=== PATIENT | female | born 1945 | race Caucasian/White ===

== ENCOUNTER 2020-10-04 16:31 | Outpatient (REF) | payer MEDICARE, SELFPAY ==
[2020-10-04 19:55] LABS: Anion Gap 4.8 mmol/L (3-11); BUN 18 mg/dL (7-18); CO2 32.2 mmol/L (21.0-32.0); CREATININE 1.07 mg/dL (0.55-1.02); Calcium 9.2 mg/dL (8.5-10.1); Chloride 100 mmol/L (98-107); Estimated GFR 49.72 (mL/min/1.73m2); Glucose 68 mg/dL (74-106); NT-proBNP 677 pg/mL (<300); Potassium 4.1 mmol/L (3.5-5.1); Sodium 137 mmol/L (136-145)
== END 2020-10-04 16:51 ==
LOC: LBN 16:31
PROVIDERS: Visit Provider Internal Medicine
DX: I50.22 Chronic systolic (congestive) heart failure (principal)
CPT/HCPCS: 80048; 83880

== ENCOUNTER 2020-11-17 14:00 | Inpatient (IN) | payer OTHER, SELFPAY ==
[2020-11-17 14:08] LABS: Source Nasopharynx
--- NOTE | 2020-11-17 14:16 | HPE_ITS ---
Date of service: 11/17/20 Assessment and Plan Assessment and plan (1) Hospice care patient: Status: Acute Assessment and plan: On since September 2020 Here on symptom management. May want to change advisor to respite once her symptoms are better controlled. (2) Pulmonary hypertension: Status: Chronic Assessment and plan: chronic reason for hospice linked to her cor pulmonale no obvious edema EF 35% when last checked (3) Pulmonary fibrosis: Status: Chronic Assessment and plan: no known causative exposures, other than tobacco... (4) Chronic respiratory failure with hypoxia: Status: Chronic Assessment and plan: oxygen sat at home, prior to her coming in to hospital, was 85% on 4L she says this is how she has been satting for the last 10 days or so (5) Requires assistance with activities of daily living (ADL): Status: Chronic Assessment and plan: partner struggles with helping with personal care hospice team notified that she will need more help once discharged (6) Anxiety: Status: Chronic Assessment and plan: asked if she was interested in trying an SSRI for now she is not at this time but may need one soon (7) DNI (do not intubate): Status: Acute (8) DNR (do not resuscitate): Status: Acute (9) POLST (Physician Orders for Life-Sustaining Treatment): Status: Acute (10) Dependence on supplemental oxygen: Status: Chronic (11) Hypoxia: Status: Acute (12) Chronic dyspnea: Status: Acute (13) Atherosclerotic heart disease: Status: Chronic Assessment and plan: she agreed to holding her cardiac medications for now not sure when her stents were placed looking into her cardiac records History of Present Illness History of Present Illness Chief Complaint: hospice symptom management, COPD, anxiety, dyspnea Narrative: Stormy is a 75 yo woman with end-stage COPD and pulmonary fibrosis on hospice since September 2020. She has done relatively well until recently; the last 2 weeks or so, her breathing has been much worse, as has her anxiety. She was reluctant to try oral morphine. She has taken 10 mg doses a few times a day with little relief. She took 1 mg of lorazepam yesterday and looked after she took it, per her partner/SO Adam Finch. He feels overwhelmed and unable to help Stormy as she needs it. She can't get herself dressed by herself. She can't take a shower by herself. She needs help with personal care. All of this overwhelms him. She does have a daughter, Sydnie, who lives locally and helps as needed, but she works irrigation system operator, too. She is being admitted for hospice symptom management in an attempt to get her breathlessness and anxiety under control. Review of Systems Constitutional Constitutional: Reports fatigue, Reports lethargy, Reports weakness and Reports weight loss Eyes Eyes: Reports requires corrective lenses ENT Ears, Nose, Mouth, and Throat: Reports dizziness, Reports dry mouth and Reports disequilibrium Cardiovascular Cardiovascular: Reports irregular heart rhythm, Reports lightheadedness, Reports dyspnea and Reports dyspnea on exertion Respiratory Respiratory: Reports dyspnea and Reports dyspnea on exertion Gastrointestinal Gastrointestinal: Reports constipation and Reports nausea Genitourinary Genitourinary: Reports urinary incontinence Musculoskeletal Musculoskeletal: Reports atrophy and Reports muscle weakness Neurologic Neurologic: Reports dizziness, Reports memory loss, Reports disequilibrium and Reports weakness Psychiatric Psychiatric: Reports anxiety, Reports difficulty concentrating, Reports hopelessness, Reports anhedonia and Reports memory loss Endocrine Endocrine: Reports fatigue PFSH Medical History Anxiety Atherosclerotic heart disease Chronic dyspnea Chronic kidney disease, stage 3 Chronic obstructive lung disease Chronic respiratory failure with hypoxia Chronic systolic (congestive) heart failure Dependence on supplemental oxygen 4L per minute DNI (do not intubate) DNR (do not resuscitate) Gastroesophageal reflux disease Hospice care patient Hypoxia Orthostatic hypotension Other specified disorders of bone density and structure, multiple sites Paroxysmal atrial fibrillation POLST (Physician Orders for Life-Sustaining Treatment) Pulmonary fibrosis Pulmonary hypertension Requires assistance with activities of daily living (ADL) Family History (Updated 11/17/20 @ 14:25 by Netta Craig MD) Daughter No problems noted. Daughter No problems noted. Daughter No problems noted. Daughter No problems noted. Son No problems noted. Social History (Updated 11/17/20 @ 14:30 by Netta Craig MD) Smoking/Tobacco Use Status: Former Tobacco Use Second Hand Exposure: No Smoking risk assessment performed?: Yes Alcohol Intake: current Alcohol Intake frequency: holidays/special occasions only Drug use: Never Caregiver/Support person: Yes Household members: significant other Housing: house Number of Children: 5 Communication Needs: Corrective Lenses Education Level: high school Do you need help understanding health information?: Often current occupation: retired shopkeeper Do you think of yourself as: straight/heterosexual Current gender identity: female What is your relationship status?: living with partner How often do you talk on the phone with friends or family?: three or more times per week How often do you get together with friends or relatives?: three or more times per week Panel score (0-1 are the most socially isolated patients): 2 What type of physical activity do you participate in: none and sedentary lifestyle Special elba needs: No Agree to transfusion: No Seatbelt use: always Working smoke detector in home: Yes Fire extinguisher in home: Yes Do you feel safe at home: Yes Do you feel safe in your relationship?: Yes Additional Social history: Stormy and Adam, her SO, have been together for about 15 years. She was about 16 yrs ago. They live together in a trailer in [place]. Her daughter, Sydnie, who works at [employer] and is comfortable caregiving, helps out regularly but doesn't live nearby. Adam is clearly feeling overwhelmed. He's scared to see Stormy doing worse. He cried when he talked about thinking she was after he gave her one mg of ativan. He doesn't seem prepared for the usual process of dying. Stormy is being admitted to get her respiratory symptoms under better control. Anxiety plays a role in her sx, too. Meds Home Medications and Allergies Home Medications Medication Instructions Recorded Confirmed Type atorvastatin 80 mg tablet 80 mg PO DAILY 09/18/20 History clobetasol 0.05 % scalp solution 1 applic TOPICAL DAILY 09/18/20 History clopidogrel 75 mg tablet 75 mg PO DAILY 09/18/20 History dofetilide 250 mcg capsule 250 mcg PO Q12H 09/18/20 History furosemide 40 mg tablet 40 mg PO DAILY 09/18/20 History ipratropium 0.5 mg-albuterol 3 mg 3 ml INHALATION BID PRN ml 09/18/20 History (2.5 mg base)/3 mL nebulization soln metoprolol succinate 50 mg 50 mg PO DAILY 09/18/20 History tablet,extended release 24 hr metronidazole 0.75 % vaginal gel 1 appful VAGINAL DAILY 09/18/20 History omega-3 fatty acids 1,000 mg 2,000 mg PO DAILY cap 09/18/20 History capsule omeprazole 20 mg capsule,delayed 20 mg PO DAILY 09/18/20 History release potassium chloride 20 mEq 20 meq PO DAILY 09/18/20 History tablet,extended release rivaroxaban 20 mg tablet 20 mg PO DAILY 09/18/20 History triamcinolone acetonide 0.1 % 1 applic TOPICAL DAILY 09/18/20 History topical ointment umeclidinium 62.5 mcg-vilanterol 1 inh INHALATION DAILY 09/18/20 History 25 mcg/actuation powdr for inhalation vitamin A-vit C-vit E-zinc-Cu 1 tab PO BID tab 09/18/20 History tablet lorazepam 1 mg tablet 1 mg PO Q4H PRN PRN #6 tab MDD 09/21/20 09/21/20 Rx hospice morphine concentrate 100 mg/5 mL 5 - 20 mg PO Q1H PRN PRN #30 ml 11/16/20 Rx (20 mg/mL) oral solution MDD hospice Exam Narrative Exam Narrative: Thin elderly woman, pale, wearing her oxygen at 4L/min, was 85% at home on this amount, doesn't want sats checked here. Eyes anicteric, noninjected HEENT dry MM, not parched, no LAD, hearing grossly intact Lungs distant, crackles in bilateral posterior lower lobes, no obvious wheeze, is using accessory muscles to breathe heart: irregular, no obvious murmur, but heart sounds quiet compared to lung abd slender, NT, ND, +BS wnl ext clubbing of fingers, cools hands and feet neuro A and O x 3, no obvious cognitive deficits, good sense of humor despite anxiety psych: anxious, worried about her partner, afraid to take medications in general skin: pale, no lesions COVID-19 Screening Have you, or household traveled for leisure in last 14 days?: No
[2020-11-17 14:55] LABS: COVID-19 PCR Negative (Negative); Influenza A PCR Negative (Negative); Influenza B PCR Negative (Negative); RSV PCR Negative (Negative)
[2020-11-17 19:00] VITALS: RESP 1; RESP 16; RESP 8
[2020-11-17] MEDS: Albuterol/Ipratropium 3 ML UPD VIAL UPD ×2 (19:00→23:39)
[2020-11-17] MEDS: Docusate Sodium 100 MG CAP PO (19:29)
[2020-11-17] MEDS: Senna TAB PO (21:41)
[2020-11-17 23:39] VITALS: RESP 2; RESP 20; RESP 6; O2SAT 94
[2020-11-18 05:43] VITALS: RESP 4; RESP 6
[2020-11-18] MEDS: Albuterol/Ipratropium 3 ML UPD VIAL UPD ×3 (05:43→17:32)
[2020-11-18] MEDS: Omeprazole 20 MG CAPCR PO (08:15)
[2020-11-18] MEDS: Furosemide 40 MG TAB PO (08:15)
[2020-11-18] MEDS: Docusate Sodium 100 MG CAP PO ×2 (08:15→20:11)
[2020-11-18] MEDS: Potassium Chloride Liquid 20 MEQ PKT PO (08:15)
[2020-11-18] MEDS: Metoprolol CR 50 MG TABCR PO (08:15)
[2020-11-18 11:05] VITALS: PULSE 78; RESP 2; O2SAT 91
[2020-11-18 11:07] VITALS: RESP 2
--- NOTE | 2020-11-18 15:51 | PGE_ITS ---
Date of Service Date of service: 11/18/20 Time of Service: 15:52 Assessment and Plan Assessment and plan (1) Chronic dyspnea: Status: Acute (2) Requires assistance with activities of daily living (ADL): Status: Chronic (3) Pulmonary hypertension: Status: Chronic (4) Pulmonary fibrosis: Status: Chronic (5) Chronic obstructive lung disease: Status: Acute (6) Hospice care patient: Status: Acute Assessment and plan: Stormy feels much better over the last 18 hours. Overall she feels that her dyspnea although not improved is easier for her to handle. The morphine drip is making a big difference. She remains extremely dyspneic and wants the commode by the bedside so she does not have to walk the 15 feet to the bathroom due to the amount of dyspnea it causes. Today, feeling better, she sounds like she was less anxious and depressed. I did not broach the subject of an SSRI. I would like to give her a full 24 hours which would mean tomorrow and if continued stable we will switch her over to respite care. I will talk to her about possibly starting an antidepressant at that time The big problem is going to be placement or perhaps more help in the home. She really is extremely dependent on other people to help her with her ADLs. Very pleasant woman, enjoyed my time with her Subjective Subjective Patient reports: feels better, pain is less and shortness of breath; denies nausea Interval history since last seen: Stormy is a 75-year-old woman with end-stage COPD, pulmonary hypertension, and pulmonary fibrosis. She is O2 dependent?4 L and usually sats about 85%. She has been on hospice since September. She has done fairly well until about 2 weeks ago when her breathlessness and anxiety had increased significantly. She needs help with many of her activities of daily living. There is a question as to whether or not she is able to return home because her significant other may not be capable of helping her to the degree she requires. She was very much out of breath when I walked in the room. She explained that she had just walked back from the bathroom. She is going to use the commode from here on out. She was smiling, cooperative. She said she felt much better since coming into the hospital. She is feeling much more like herself. She thinks she was not using the morphine enough to help with her breathing. She still needs help with most activities of daily living Exam Narrative Exam Narrative: She is lying on her side. She can speak in 2-4 word sentences. She is smiling and has an infectious laugh. Her heart is regular. Lungs diminished air movement with crackles. Abdomen was soft nontender she does do a lot of stomach breathing. Palliative Performance Scale % Ambulation Activity and Evidence of Disease Self Care Intake Level of Consciousness 100 Full Normal activity, no evidence of disease Full Normal Full 90 Full Normal activity, some evidence of disease Full Normal Full 80 Full Normal activity with effort, some evidence of disease Full Normal or reduced Full 70 Reduced Unable to do normal work, some evidence of disease Full Normal or reduced Full 60 Reduced Unable to do hobby or some housework, significant disease Occasional assist necessary Normal or reduced Full or confusion 50 Mainly sit/lie Unable to do any work, extensive disease Considerable assistance required Normal or reduced Full or confusion 40 Mainly in bed Unable to do any work, extensive disease Mainly assistance N ormal or reduced Full, drowsy, or confusion 30 Totally bed bound Unable to do any work, extensive disease Total care Reduced Full, drowsy, or confusion 20 Totally bed bound Unable to do any work, extensive disease Total care Minimal sips Full, drowsy, or confusion 10 Totally bed bound Unable to do any work, extensive disease Total care Mouth care only Drowsy or coma 0 - - - - Patient Score: 40% Objective Last Vital Signs Pulse 78 11/18/20 11:05 Resp 20 11/17/20 23:39 Pulse Ox 91 L 11/18/20 11:05
[2020-11-18 17:33] VITALS: RESP 20
[2020-11-18] MEDS: Senna TAB PO (21:44)
[2020-11-19 00:08] VITALS: RESP 2; RESP 20; RESP 7
[2020-11-19] MEDS: Albuterol/Ipratropium 3 ML UPD VIAL UPD ×3 (00:08→11:07)
[2020-11-19 00:38] VITALS: RESP 2; RESP 7; RESP 8
[2020-11-19 06:33] VITALS: RESP 2; RESP 7
[2020-11-19 07:03] VITALS: RESP 2; RESP 7
[2020-11-19] MEDS: Docusate Sodium 100 MG CAP PO ×2 (08:02→20:08)
[2020-11-19] MEDS: Furosemide 40 MG TAB PO (08:02)
[2020-11-19] MEDS: Omeprazole 20 MG CAPCR PO (08:02)
[2020-11-19] MEDS: Metoprolol CR 50 MG TABCR PO (08:02)
[2020-11-19] MEDS: Potassium Chloride Liquid 20 MEQ PKT PO (08:02)
[2020-11-19 11:07] VITALS: RESP 2; O2SAT 90
[2020-11-19 11:08] VITALS: RESP 2
--- NOTE | 2020-11-19 12:36 | W.PM.PROGNOT ---
Date of Service Date of service: 11/19/20 Time of Service: 10:37 Assessment and Plan Assessment and plan (1) Chronic dyspnea: Status: Acute (2) Hypoxia: Status: Acute (3) Pulmonary fibrosis: Status: Chronic (4) Pulmonary hypertension: Status: Chronic (5) Paroxysmal atrial fibrillation: Status: Acute (6) Hospice care patient: Status: Acute Assessment and plan: Chronic hypoxia?continue on the oxygen. She is dyspneic with minimal exertion, even speaking. Overall she is doing much better on the morphine pump. She would very much so like to be on this when she goes home. She did not like the oral liquid morphine and this is much better tolerated Discussion about paying attention to bowel health to make sure she does not become constipated. She had a bowel movement yesterday but has not yet had one today. She states that she is usually in every other day woman Discussion about some of the sadness that she has in her life At this point we will switch Stormy from symptom management to respite. She is doing very well. She is anxious to see Dr. Gómez again and really has enjoyed her conversations with Dr. Gómez in the past. Dr. Gómez will be taking over her care on Friday. I did explain to Stormy that I may not be in tomorrow once she is switched over to respite. I did not discuss going on prednisone, but if she is dyspneic this might be an alternative or in addition to the morphine. Subjective Subjective Interval history since last seen: Stormy is sitting in her bed smiling. She states that she is feeling much much better. She has used the commode some but sometimes she feels that it is good for her to walk to the bathroom even though she is breathless when she does this. She states that her significant other has been crying when she talks with him. He misses her desperately and wants her to come home. She states that 2 of her daughters are excellent with care giving. She has 5 daughters total but 2 of them she has become very close with since she has been sick. She also has a son who unfortunately she is estranged from. He was in a car accident where 4 out of the 5 passengers were killed. He then had to people that committed suicide who are close to him. After these events he pretty much has isolated himself from family and friends. She is sad about this. We talked about staying on the pump when she goes home. She was much relieved to hear that this was a possibility. She said she feels so much better. Exam Narrative Exam Narrative: She is sitting in bed. She was able to sit up when I listen to her lungs. She did not appear depressed today. Her mood was generally. She could talk in 3 and 4 word sentences. Her heart was irregular. Lungs decreased lung sounds and a few scattered rales more on the left than on the right. She does not have any edema today. Objective Last Vital Signs Pulse 78 11/18/20 11:05 Resp 20 11/19/20 00:08 Pulse Ox 90 L 11/19/20 11:07
[2020-11-19] MEDS: Senna TAB PO (20:08)
[2020-11-20] MEDS: Furosemide 40 MG TAB PO (08:27)
[2020-11-20] MEDS: Docusate Sodium 100 MG CAP PO ×2 (08:27→20:25)
[2020-11-20] MEDS: Potassium Chloride Liquid 20 MEQ PKT PO (08:27)
[2020-11-20] MEDS: Omeprazole 20 MG CAPCR PO (08:27)
[2020-11-20] MEDS: Metoprolol CR 50 MG TABCR PO (08:27)
--- NOTE | 2020-11-20 10:07 | PHA.REVIEW ---
Pharmacy Admission Review - Admission Clinical Review (Last Updated 11/17/20 @ 14:40 by Netta Craig MD) Hypoxia (Acute) Chronic dyspnea (Acute) DNI (do not intubate) (Acute) DNR (do not resuscitate) (Acute) POLST (Physician Orders for Life-Sustaining Treatment) (Acute) Hospice care patient (Acute) Paroxysmal atrial fibrillation (Acute) Chronic obstructive lung disease (Acute) - Comments Comments/Follow Ups: Hospice respite - Renal Dosing Medications needing adjustments: N/A - Anticoagulation DVT Prohphylaxis: N/A Therapeutic Anticoagulation: N/A - Opiate Usage Evaluate Pain Scale/Pains Meds: Reviewed (pt has morphine CADD ordered) Scheduled Bowel Reg ordered if on Opiates?: Yes - Relevant Labs Electrolytes, C-Reactive P, ESR: N/A - DM Control Insulin Dosing: N/A - Heart Failure/NE EF%, BRENDEN's, B-Blockers, Diuretics: N/A - BP Control If elevated: N/A - Qtc Review If Elevated: N/A - IV to PO Switch IV Medications: Reviewed - Home Meds Home Med List reviewed: Reviewed (Multiple anticholinergic meds; its recommended to avoid concurrent use. Anticholinergic meds can increase the ulcerogenic effect of potassium; consider alternative dosage forms. Multiple AUTOMATIC WHEEL LINE OPERATOR depressants. Omeprazole may diminish the effectiveness of clopidogrel.) Relevent Home Meds Not ordered & why?: atorvastatin, clobetasol, clopidogrel, dofetilide, metronidazole, omega-3, rivaroxaban, umeclidinium/vilanterol (has scheduled duonebs ordered) - Current meds Current Medication Order Review: Intervened (I talked to the provider about changing the dosage form of potassium from tablets to liquid due to all of the anticholinergic meds ordered.) - Comments Comments/Follow Ups: Watch VS and for med changes (additional need of BM meds).
[2020-11-20 11:42] VITALS: PULSE 76; RESP 18; RESP 2; RESP 7; O2SAT 91
[2020-11-20] MEDS: Albuterol/Ipratropium 3 ML UPD VIAL UPD ×2 (11:42→18:37)
[2020-11-20 11:44] VITALS: PULSE 78; RESP 18; RESP 2; RESP 7; O2SAT 95
--- NOTE | 2020-11-20 12:46 | PDOC.CMPRO ---
Care Management Progress Note Stormy transitioned from Hospice-acute symptom management to Hospice-Respite yesterday, with plans to return home on morphine pump upon discharge. MD notes improvement in symptoms and affect. CM continues to follow; awaiting discharge planning directives from Hospice team.
--- NOTE | 2020-11-20 14:40 | CHAPLAIN ---
Stormy was resting in bed when I visited. She said she expects to go home tomorrow or the next day. She's had lots of phone calls from family members, she said, but other than that has been bored. She seems to be comfortable being here, although bored.
--- NOTE | 2020-11-20 15:04 | W.NUTRFU ---
Date of service: 11/20/20 Time of Service: 15:04 Nutritional Follow up NOTE: Pt admitted on hospice care, with end stage COPD. Following regular meal plan with adequate intake at this time. Will continue to follow. Time Spent in Nutritional Counseling and Treatment: 0
[2020-11-20 18:37] VITALS: PULSE 73; RESP 2; RESP 20; RESP 8; O2SAT 94
[2020-11-20 18:49] VITALS: PULSE 83; RESP 2; RESP 20; RESP 8; O2SAT 94
[2020-11-20] MEDS: Senna TAB PO (20:25)
[2020-11-21] MEDS: Furosemide 40 MG TAB PO (07:31)
[2020-11-21] MEDS: Metoprolol CR 50 MG TABCR PO (07:31)
[2020-11-21] MEDS: Docusate Sodium 100 MG CAP PO ×2 (07:31→19:44)
[2020-11-21] MEDS: Omeprazole 20 MG CAPCR PO (07:31)
[2020-11-21] MEDS: Potassium Chloride Liquid 20 MEQ PKT PO (07:31)
[2020-11-21 12:32] VITALS: PULSE 73; RESP 20; RESP 4; O2SAT 92
[2020-11-21] MEDS: Albuterol/Ipratropium 3 ML UPD VIAL UPD ×3 (12:32→23:37)
[2020-11-21 12:40] VITALS: PULSE 83; RESP 1; RESP 22; O2SAT 94
[2020-11-21 17:31] VITALS: RESP 16
[2020-11-21] MEDS: Senna TAB PO (21:08)
[2020-11-21 23:37] VITALS: RESP 2; RESP 7; O2SAT 95
[2020-11-22 05:42] VITALS: RESP 2; RESP 7
[2020-11-22] MEDS: Albuterol/Ipratropium 3 ML UPD VIAL UPD ×2 (05:42→11:21)
[2020-11-22] MEDS: Metoprolol CR 50 MG TABCR PO (08:25)
[2020-11-22] MEDS: Potassium Chloride Liquid 20 MEQ PKT PO (08:25)
[2020-11-22] MEDS: Omeprazole 20 MG CAPCR PO (08:25)
[2020-11-22] MEDS: Docusate Sodium 100 MG CAP PO (08:25)
[2020-11-22] MEDS: Furosemide 40 MG TAB PO (08:25)
--- NOTE | 2020-11-22 08:48 | DSE_ITS ---
Date of service: 11/22/20 DS: Diagnosis Discharge Diagnosis (1) Chronic dyspnea: Status: Acute (2) Hypoxia: Status: Acute (3) Pulmonary fibrosis: Status: Chronic (4) Pulmonary hypertension: Status: Chronic (5) Paroxysmal atrial fibrillation: Status: Acute (6) Hospice care patient: Status: Acute Discharge Plan Disposition Patient Disposition: HOME W/HOME HEALTH SERVICE Condition: Poor Discharge Details Reason For Visit: END-STAGE COPD WITH INCREASED DYSNPNEA, ANXIETY: Admit Date/Time: 11/17/20 14:00 Admit Provider: Netta Craig Attending Provider: Netta Craig Primary Care Provider: Unknown,Unknown Home Meds and New Rx's Prescriptions: No Action lorazepam 1 mg tablet 1 mg PO Q4H PRN MDD hospice PRN (Reason: anxiety) Qty: 6 RF: 0 ipratropium-albuterol 0.5 mg-3 mg(2.5 mg base)/3 mL solution for nebulization 3 ml inhalation BID PRNRF: 0 atorvastatin 80 mg tablet 80 mg PO DAILY RF: 0 clobetasol 0.05 % solution 1 applic topical DAILY RF: 0 clopidogrel 75 mg tablet 75 mg PO DAILY RF: 0 dofetilide 250 mcg capsule 250 mcg PO Q12H RF: 0 omega-3 fatty acids [Fish Oil Concentrate] 1,000 mg capsule 2,000 mg PO DAILY RF: 0 furosemide 40 mg tablet 40 mg PO DAILY RF: 0 metoprolol succinate 50 mg tablet extended release 24 hr 50 mg PO DAILY RF: 0 metronidazole 0.75 % gel 1 appful vaginal DAILY RF: 0 omeprazole 20 mg capsule,delayed release(DR/EC) 20 mg PO DAILY RF: 0 potassium chloride 20 mEq tablet extended release 20 meq PO DAILY RF: 0 rivaroxaban 20 mg tablet 20 mg PO DAILY RF: 0 umeclidinium-vilanterol 62.5-25 mcg/actuation blister with device 1 inh inhalation DAILY RF: 0 morphine concentrate 100 mg/5 mL (20 mg/mL) solution 5 - 20 mg PO Q1H PRN MDD hospice PRN (Reason: pain) Qty: 30 RF: 0 Discharge Instructions Care Plan Goals: Will be returning to hospice care once home. Hospice nurse Delano Fernandez will bring over hospice CADD pump and change morphine cassette into their pump prior to Stormy's discharge. She will provide education about how to self-administer boluses. Activity:: Activity as Tolerated Equipment/Supplies:: No Equipment Needed Diet:: As Tolerated DS: Summary Status at Discharge Functional status at discharge: independent ambulation (for very short distances) Overall status at discharge: patient is back to baseline Mental Status: mental status grossly normal Speech and Movement: speech and movement normal and speech clear Mood: congruent mood Affect: normal affect Time Spent with Patient providing and/or coordinating discharge services: Greater than 30 minutes Specific discharge activities: I told Stormy that while she was inpatient, I held the majority of her cardiac medications. She wants to go back on them once home. OK to do so, with reminder that IF she feels worse, we should discuss discontinuing again. Exam Narrative Exam Narrative: She is sitting in her chair, having finished her breakfast. She did not appear anxious or depressed today. Her mood was generally good, making jokes, etc.. She could talk in full sentences. Her heart was irregular. Lungs decreased lung sounds and a few scattered rales more on the left than on the right. She does not have any edema today. Her skin is pale. She has no rashes or lesions. She has no cognitive losses. She is ready to go home. She is worried about her partner, Adam, and how he will do salvage determiner. She was reminded that she can come back as needed. Psych Mental Status: mental status grossly normal Speech and Movement: speech and movement normal and speech clear Mood: congruent mood Affect: normal affect DS: Data Vitals/I&O Vitals and I&O: Vital Signs Pulse 83 11/21/20 12:40 Pulse Rhythm Regular 11/18/20 00:33 Respiratory Rate 16 11/21/20 17:31 Respiratory Effort Non-Labored 11/22/20 01:21 Respiratory Depth Normal 11/22/20 01:21 Respiratory Pattern Normal 11/22/20 01:21 Pulse Oximetry 95 11/21/20 23:37 Oxygen Delivery Method Nasal Cannula 11/22/20 06:59 Oxygen Flow Rate 4 11/22/20 06:59 Pain Level 0 11/17/20 15:53 Intake & Output 11/21/20 11/21/20 11/22/20 11:59 23:59 11:59 Intake Total 120 / 360 240 / 360 Output Total 500 / 500 150 / 150 Balance 120 / -140 -260 / -140 -150 / -150 Intake: Oral 120 / 360 240 / 360 Output: Urine 500 / 500 150 / 150 Other: Urine Color Yellow Yellow Urine Appearance Clear Clear Clear Urine Odor None Stool Size Moderate Stool Characteristics Soft Brown Voiding Methods Toilet Toilet Bedside Commode [facility] Medical History Anxiety Atherosclerotic heart disease Chronic dyspnea Chronic kidney disease, stage 3 Chronic obstructive lung disease Chronic respiratory failure with hypoxia Chronic systolic (congestive) heart failure Dependence on supplemental oxygen 4L per minute DNI (do not intubate) DNR (do not resuscitate) Gastroesophageal reflux disease Hospice care patient Hypoxia Orthostatic hypotension Other specified disorders of bone density and structure, multiple sites Paroxysmal atrial fibrillation POLST (Physician Orders for Life-Sustaining Treatment) Pulmonary fibrosis Pulmonary hypertension Requires assistance with activities of daily living (ADL) Family History Daughter No problems noted. Daughter No problems noted. Daughter No problems noted. Daughter No problems noted. Son No problems noted. Social History (Updated 11/22/20 @ 08:51 by Netta Craig MD) Smoking/Tobacco Use Status: Former Tobacco Use Second Hand Exposure: No Smoking risk assessment performed?: Yes Alcohol Intake: current Alcohol Intake frequency: holidays/special occasions only Drug use: Never Caregiver/Support person: Yes Household members: significant other Housing: house Number of Children: 5 Communication Needs: Corrective Lenses Education Level: high school Do you need help understanding health information?: Often current occupation: retired shopkeeper Do you think of yourself as: straight/heterosexual Current gender identity: female What is your relationship status?: living with partner How often do you talk on the phone with friends or family?: three or more times per week How often do you get together with friends or relatives?: three or more times per week Panel score (0-1 are the most socially isolated patients): 2 What type of physical activity do you participate in: none and sedentary lifestyle Special elba needs: No Agree to transfusion: No Seatbelt use: always Working smoke detector in home: Yes Fire extinguisher in home: Yes Do you feel safe at home: Yes Do you feel safe in your relationship?: Yes Additional Social history: Chelle, her SO, have been together for about 15 years. She was about 16 yrs ago. They live together in a [place] in [place]. Her daughter, Sydnie, who works at [employer] and is comfortable caregiving, helps out regularly but doesn't live nearby. Adam is clearly feeling overwhelmed. He's scared to see Stormy doing worse. He cried when he talked about thinking she was after he gave her one mg of ativan. He doesn't seem prepared for the usual process of dying. Hospice team to work with him in preparation for Stormy's . Stormy was admitted to get her respiratory symptoms under better control. The morphine pump has made a world of difference for her. She's much more comfortable. Still gets breathless going to BR. Discussed need for her to self- treat with boluses and/or half tab of lorazepam when needed.
[2020-11-22 11:21] VITALS: RESP 2
[2020-11-22 11:24] VITALS: RESP 2
--- NOTE | 2020-11-22 11:32 | CHAPLAIN ---
Stormy said she is planning on going home today. She has been here as hospice patient. Although she's been comfortable here, she said she can do the same things she's doing here, at home. She also said it's been a good break from being with her significant other, and that he likely missed her. Stormy did not seem interested in talking about her diagnoses or prognosis, but said said she likes Dr. Craig, although she just met her once and Dr. Craig sent her to the hospital. So Stormy said she knows she can come back if she needs to.
--- NOTE | 2020-11-22 11:45 | PDOC.CMPRO ---
Care Management Progress Note Stormy will return home with increased support through Hospice, per MD. Koko, RN at hospice reports she will place a new pump prior to discharge and provide education. Koko also reports Stormy has O2 set up at home. Stormy will transport home via private vehicle with family.
== END 2020-11-22 12:53 | disposition home health service (06) | DRG 189 ==
PROVIDERS: Admitting Provider Family Medicine; Visit Provider Family Medicine
DX: J96.11 Chronic respiratory failure with hypoxia (principal); I50.22 Chronic systolic (congestive) heart failure; Z51.5 Encounter for palliative care; I27.20 Pulmonary hypertension, unspecified; J84.10 Pulmonary fibrosis, unspecified; F41.9 Anxiety disorder, unspecified; Z66 Do not resuscitate; Z99.81 Dependence on supplemental oxygen; R09.02 Hypoxemia; I25.10 Atherosclerotic heart disease of native coronary artery without angina pectoris; N18.30 Chronic kidney disease, stage 3 unspecified; K21.9 Gastro-esophageal reflux disease without esophagitis; I48.0 Paroxysmal atrial fibrillation; I95.1 Orthostatic hypotension; Z87.891 Personal history of nicotine dependence; J44.9 Chronic obstructive pulmonary disease, unspecified
CPT/HCPCS: 99223; NC; 94640; J7620